=== PATIENT | male | born 2000 | race Hispanic/Latino ===

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

== ENCOUNTER 2022-07-14 15:31 | Emergency (ER) | payer BC ==
[~2022-07-14] VITALS: Ht 165.1 cm; Wt 53.5 kg
[2022-07-14 15:36] VITALS: BP 137/114
[2022-07-14 18:13] LABS: BASOPHILS % (AUTO) 0.3 % (0.0-5.0); EOSINOPHILS % (AUTO) 0.3 % (0.0-8.0); HEMATOCRIT 45.6 % (42-54); LYMPHOCYTES % (AUTO) 18.7 % (21.0-51.0); MEAN CORPUSCULAR HEMOGLOBIN 30.7 pg (27.0-33.0); MEAN CORPUSCULAR HGB CONC 34.6 g/dL (32.0-36.0); MEAN CORPUSCULAR VOLUME 88.7 fL (80-100); MONOCYTES % (AUTO) 6.8 % (3.0-13.0); NEUTROPHILS % (AUTO) 73.6 % (40.0-77.0); PLATELET COUNT (AUTO) 295 K/uL (130-400); RED BLOOD CELL COUNT(AUTO) 5.14 MIL/uL (4.50-6.20); RED CELL DISTRIBUTION WIDTH 11.6 % (11.0-15.5); WHITE BLOOD COUNT (AUTO) 11.6 K/uL (4.8-10.8)
[2022-07-14 18:23] LABS: CREATININE 0.9 mg/dL (0.5-1.5); POTASSIUM 3.9 mmol/L (3.5-5.1)
[2022-07-14 18:27] LABS: ALBUMIN 4.7 g/dL (3.5-5.0); TOTAL PROTEIN, SERUM 10.3 g/dL (6.0-8.3)
[2022-07-14] MEDS ORDERED: IOHEXOL-350 50ML VIAL IV ONE (18:33)
[2022-07-14] MEDS ORDERED: KETOROLAC 30MG VIAL (30MG/ML) IM ONE (20:30)
== END 2022-07-14 20:39 | disposition home or self-care (01) ==
LOC: EDH 15:31
DX: J36 Peritonsillar abscess (principal); Z20.822 Contact with and (suspected) exposure to COVID-19; H61.22 Impacted cerumen, left ear
CPT/HCPCS: 99284; 70491; 87635; 80053; 85025; 87880; 87804 ×2; 36415; C9803; Q9967; J1885

== ENCOUNTER 2024-05-27 02:41 | Emergency (ER) | payer BC ==
[~2024-05-27] VITALS: Ht 165.1 cm; Wt 68.5 kg
--- NOTE | 2024-05-27 02:48 | ERN ---
General Chief Complaint: Tooth Ache/Pain Stated Complaint: C/O TOOTHACHE TO LEFT TOP SIDE Time Seen by MD: 02:43 Source: patient History of Present Illness Initial Comments Patient is a 23-year-old male coming in to be evaluated for upper molar pain. Patient states he was diagnosed with a fractured molar in his pending a cap but states he has not followed up with a dentist as indicated. Allergies: Coded Allergies: No Known Allergies (Unverified Allergy, Unknown, 07/14/22) Past Medical History Past Medical History: No Pertinent History Past Surgical History: None ROS Dictation CONSTITUTIONAL: No chills, no fever, no weakness, no diaphoresis, no malaise. HEAD/FACE: No signs of trauma. EENT: No eye pain, no blurred vision, no tearing, no double vision, no ear pain, no ear discharge, no nose pain, no nasal congestion, no throat pain, no throat swelling, mouth pain. RESPIRATORY: No cough, no orthopnea, no SOB, no stridor, no wheezing. CARDIOVASCULAR: No chest pain, no edema, no palpitations, no syncope. GASTROINTESTINAL/ABDOMINAL: No abdominal pain, no constipation, no diarrhea, no nausea, no vomiting. GENITOURINARY: No abnormal discharge, no dysuria, no frequent urination, no hematuria. No complaints of pain in the genitals. MUSCULOSKELETAL: No back pain, no gout, no joint pain, no joint swelling, no muscle pain, no muscle stiffness, no neck pain. INTEGUMENTARY: No change in color, no change in hair/nails, no dryness, no lesion, no lumps, no rash. NEUROLOGICAL/PSYCH: No anxiety, not depressed, no emotional problem, no headache, no numbness, no pre-existing deficit, no history of seizures, no tremors, no weakness. HEMATOLOGIC/LYMPHATIC: Not anemic, no history of blood clots, no apparent bleeding, no bruising, glands not swollen. All Systems Negative, Except as Noted. Physical Exam Physical Exam Dictation VITAL SIGNS: Reviewed. GENERAL APPEARANCE: Alert, oriented x3, no acute distress, obese. HEAD AND FACE: Non-traumatic. EYES: PERRL, pink conjunctivas, eyelid no trauma, anterior chamber clear. EARS: Pinnas intact and no signs of trauma or erythema. Ear canals clear and no discharge. TMs no erythema. NOSE: No discharge, no bleeding. OROPHARYNX: Mouth normal, teeth no caries, tongue pink. Pharynx clear, no erythema. Tonsils no exudates, no abscesses noted. Mucous membrane moist. NECK: Supple, non-tender, no thyromegaly, no masses, no JVD, no bruits. BREAST: Deferred. CHEST: No tenderness, no crepitus, no paradoxical movement, no retractions. LUNGS: Clear, well-ventilated, symmetric, no rales, no wheezing, no rhonchi, no stridor, good breath sounds bilaterally. HEART: Regular rate, regular rhythm, no murmur, no gallops. VASCULAR: No peripheral edema. ABDOMEN: Soft, positive bowel sounds, nondistended, no guarding, nontender, no rebound, no masses no hepatomegaly, no splenomegaly, no Dove's sign, no hernias. RECTAL: Deferred. GENITAL: Deferred. NEUROLOGICAL: Normal speech, gross motor function intact, gross sensory function intact. MUSCULOSKELETAL: Neck nontender, full range of motion, back nontender, full range of motion. EXTREMITIES: Nontender, full range of motion. SKIN: Color pink, dry, no turgor, no rash, no lacerations, no abrasions, no contusions. LYMPHATICS: Deferred. MDM MDM: Differential diagnosis: Fractured molar, periodontal disease, Patient is a 23-year-old male coming in to be evaluated for molar pain. On physical exam the molar is fractured and patient was pending a cap to be placed in it. Patient was treated with pain relief with topical lidocaine, patient will be discharged with oral antibiotics for infection prevention and I advised him appropriate follow up with dentist for long-term management. ED Course Orders Procedure Category Date Status Time Lidocaine Hcl 2% PHA 05/27/24 Complete Viscous (Lidocaine Hcl 03:00 Current Medications Medications (Trade) Dose Ordered Sig/Mihir Route PRN Reason Start Time Stop Time Status Last Admin Dose Admin Lidocaine HCl (Lidocaine HCl 2% Viscous) 10 ml ONCE ONCE PO 05/27/24 03:00 05/27/24 03:01 DC 05/27/24 03:28 Vital Signs Date Time Temp Pulse Resp B/P (MAP) Pulse Ox O2 Delivery O2 Flow Rate FiO2 05/27/24 03:29 98.4 82 18 134/75 98 Room Air* 0 21 11/28/24 02:43 97.2 67 20 122/83 98 Room Air DX & DISP Disposition: Discharge Departure Impression: Primary Impression: Tooth fracture Condition: Stable Additional Instructions: FOLLOW-UP WITH PRIMARY CARE PROVIDER IN 1 TO 2 DAYS. TAKE MEDICATIONS DIRECTED HERE IN THE EMERGENCY ROOM. OKAY TO CONTINUE HOME MEDICATIONS UNLESS OTHERWISE DISCUSSED DURING YOUR VISIT IN THE EMERGENCY ROOM TODAY. RETURN TO YOUR NEAREST EMERGENCY ROOM IF SYMPTOMS WORSEN OR IF THERE IS NO IMPROVEMENT. CALL 911 IF YOU NEED IMMEDIATE ASSISTANCE. TAKE TYLENOL [id number] NEEDED AND IF NO CONTRAINDICATIONS ARE PRESENT. INCREASE ORAL HYDRATION. A WOUND CULTURE OR URINE CULTURE WAS ORDERED HERE IN THE EMERGENCY ROOM DEPARTMENT PLEASE FOLLOW-UP WITH PRIMARY CARE PROVIDER AND ADVISE THEM TO GET REPEAT PORTS FROM OUR FACILITY. IF YOU HAD ANY MELISSA WRAP/SPLINTS THAT WERE APPLIED HERE, PLEASE DO NOT REMOVE THEM UNTIL YOU SEE YOUR PRIMARY CARE OR SPECIALTY. Referrals: Referrals: NONE (PCP) HIGINIO FLOWERS MD Time of Disposition: 03:46 JUD TOUSSAINT MD May 27, 2024 02:47
[2024-05-27] MEDS: LIDOCAINE HCL 2% VISCOUS 15 ML UDCUP PO ONE (03:28)
[2024-05-27 03:29] VITALS: BP 134/75; PULSE 82; RESP 18; TEMP 98.4; O2SAT 98
== END 2024-05-27 03:36 | disposition home or self-care (01) ==
LOC: EDBD → EDH 02:41
DX: S02.5XXA Fracture of tooth (traumatic), initial encounter for closed fracture (principal); X58.XXXA Exposure to other specified factors, initial encounter; Y93.89 Activity, other specified; Y92.89 Other specified places as the place of occurrence of the external cause; Y99.8 Other external cause status
CPT/HCPCS: 99283

== ENCOUNTER 2024-05-27 18:57 | Emergency (ER) | payer BC ==
[~2024-05-27] VITALS: Ht 165.1 cm; Wt 68.5 kg
--- NOTE | 2024-05-27 19:12 | ERN ---
ED Note History of Present Illness Stated Complaint: SORE THROAT, LEFT UPPER TOOTHACHE Chief Complaint: Multiple Complaints Time Seen by MD: 19:00 Dictation: PATIENT IS HERE WITH COMPLAINTS OF HAVING DENTAL PAIN WITH MILD GINGIVAL SWELLING TO TOOTH 17. AND 18. ONSET FOR SEVERAL DAYS PRIOR TO ARRIVAL. NO FEVER NO CHILLS NO NAUSEA VOMITING. STATES HE SAW A DENTIST AT [facility] YESTERDAY AND WAS PRESCRIBED AUGMENTIN AND MOTRIN HOWEVER HE STATES IT IS NOT WORKING AND WOULD LIKE SOMETHING STRONGER. I ADVISED HIM I COULD NOT GIVE HIM ANYTHING STRONGER BUT I WOULD GIVE HIM A SHOT OF ROCEPHIN AND MOTRIN AND HAVE HIM FOLLOW BACK UP WITH THE [facility] TOMORROW. Allergies: Coded Allergies: No Known Allergies (Unverified Allergy, Unknown, 07/14/22) Past Medical History Past Medical History: No Pertinent History Surgical History: None RN Note Reviewed/Agreed w/PFSH: Yes Review of System Dictation CONSTITUTIONAL: NEGATIVE EXCEPT FOR HPI HEAD/FACE: NEGATIVE EXCEPT FOR HPI EENT: NEGATIVE EXCEPT FOR HPI DENTAL PAIN WITH GINGIVAL ERYTHEMA RESPIRATORY: NEGATIVE EXCEPT FOR HPI GASTROINTESTINAL/ABDOMINAL: NEGATIVE EXCEPT FOR HPI GENITOURINARY: NEGATIVE EXCEPT FOR HPI MUSCULOSKELETAL: NEGATIVE EXCEPT FOR HPI INTEGUMENTARY: NEGATIVE EXCEPT FOR HPI NEUROLOGICAL/PSYCH: NEGATIVE EXCEPT FOR HPI HEMATOLOGIC/LYMPHATIC: NEGATIVE EXCEPT FOR HPI ALL SYSTEMS NEGATIVE, EXCEPT NOTED ABOVE. 13 POINT REVIEW OF SYSTEMS ASSESSED AND ALL NEGATIVE EXCEPT FOR ABOVE. Initial Vital Sign VS Vital Signs Date Time Temp Pulse Resp B/P (MAP) Pulse Ox O2 Delivery O2 Flow Rate FiO2 05/27/24 19:00 98.4 81 16 142/86 100 Room Air 05/27/24 19:32 0 21 Physical Exam Dictation VITAL SIGNS REVIEWED GENERAL APPEARANCE: ALERT, ORIENTED X 3, MODERATE ACUTE DISTRESS, WELL DEVELOPED, NOURISHED. HEAD AND FACE: NON-TRAUMATIC. EYES: PERRL, PINK CONJUNCTIVAS, EYELID NO TRAUMA, ANTERIOR CHAMBER WITH ARCUS SENILIS. EARS: PINNAS INTACT AND NO SIGNS OF TRAUMA OR ERYTHEMA EAR CANALS CLEAR AND NO DISCHARGE TM NO ERYTHEMA NOSE: NO DISCHARGE, NO BLEEDING. OROPHARYNX: MOUTH NORMAL, TONGUE PINK, DECAY NOTED TOOTH 17. AND TOOTH 18. MILD GINGIVAL ERYTHEMA TENDERNESS PHARYNX CLEAR,NO ERYTHEMA, TONSILS NO EXUDATES, NO ABSCESSES NOTED, MUCOUS MEMBRANE MOIST NECK: SUPPLE, NON-TENDER, NO THYROMEGALY, NO MASSES, NO JVD, NO BRUITS BREAST:DEFERRED CHEST:NO TENDERNESS, NO CREPITUS, NO PARADOXICAL MOVEMENT, NO RETRACTIONS LUNGS:CLEAR, WELL-VENTILATED, SYMMETRIC, NO RALES, NO WHEEZING, NO RHONCHI, NO STRIDOR, GOOD BREATH SOUNDS BILATERALLY HEART: REGULAR RATE, REGULAR RHYTHM, NO MURMUR, NO GALLOPS VASCULAR: NO PERIPHERAL EDEMA, ABDOMEN: SOFT, POSITIVE BOWEL SOUNDS, NONDISTENDED, NO GUARDING, NONTENDER, NO REBOUND, NO MASSES NO HEPATOMEGALY, NO SPLENOMEGALY, NO THOMAS'S SIGN, NO HERNIAS. RECTAL: DEFERRED GENITAL: DEFERRED NEUROLOGICAL: NORMAL SPEECH, MOTOR FUNCTION INTACT, SENSORY FUNCTION INTACT MUSCULOSKELETAL: NECK NONTENDER, FULL RANGE OF MOTION, BACK NONTENDER, FULL RANGE OF MOTION, EXTREMITIES: NONTENDER, FULL RANGE OF MOTION SKIN: COLOR PINK, DRY, NO TURGOR, NO RASH, NO LACERATIONS, NO ABRASIONS, NO CONTUSIONS. LYMPHATIC: DEFERRED Results (Laboratory/Radiology) Labs Reviewed?: Yes ED Course ED Course 1909, PATIENT IS HEMODYNAMICALLY STABLE AND AFEBRILE. WE WILL GIVE PATIENT ROCEPHIN AND A MOTRIN. HE WILL BE DISCHARGED WITH THE INSTRUCTIONS TO CONTINUOUS MEDICATIONS FROM HIS DENTIST AND FOLLOW BACK UP WITH HIM TOMORROW WITHOUT FAIL Medical Decision Making MDM MEDICAL DISCHARGE MAKING BASED ON EMPIRIC TREATMENT FOR DENTAL CARIES INTO THE PULP AND DENTALGIA PATIENT GIVEN ROCEPHIN AND IBUPROFEN 800 PATIENT TOLD TO CONTINUE HIS MEDICATIONS FROM HIS DENTIST VISIT ON 05/26/2024. FOLLOW BACK UP WITH HIS DENTIST TOMORROW OR LOOKING THE [facility] FOR A DENTIST WITH AFTER HOURS EMERGENCY NUMBER. DX & DISP Disposition: Discharge Departure Impression: Primary Impression: Dental caries extending into pulp Additional Impression: Dentalgia Condition: Stable Additional Instructions: FOLLOW-UP WITH PRIMARY CARE PROVIDER IN 1 TO 2 DAYS. TAKE MEDICATIONS DIRECTED HERE IN THE EMERGENCY ROOM. OKAY TO CONTINUE HOME MEDICATIONS UNLESS OTHERWISE DISCUSSED DURING YOUR VISIT IN THE EMERGENCY ROOM TODAY. RETURN TO YOUR NEAREST EMERGENCY ROOM IF SYMPTOMS WORSEN OR IF THERE IS NO IMPROVEMENT. CALL 911 IF YOU NEED IMMEDIATE ASSISTANCE. TAKE TYLENOL OR MOTRIN [id number] NEEDED AND IF NO CONTRAINDICATIONS ARE PRESENT. INCREASE ORAL HYDRATION. A WOUND CULTURE OR URINE CULTURE WAS ORDERED HERE IN THE EMERGENCY ROOM DEPARTMENT PLEASE FOLLOW-UP WITH PRIMARY CARE PROVIDER AND ADVISE THEM TO GET REPEAT PORTS FROM OUR FACILITY. IF YOU HAD ANY MELISSA WRAP/SPLINTS THAT WERE APPLIED HERE, PLEASE DO NOT REMOVE THEM UNTIL YOU SEE YOUR PRIMARY CARE OR SPECIALTY. CONTINUE YOUR IBUPROFEN AND ANTIBIOTIC FROM YOUR DENTIST VISIT ON 05/26/2024. SUGGEST A DENTAL SOFT DIET. FOLLOW BACK UP WITH YOUR DENTIST TOMORROW OR LOOKING THE [facility] FOR A DENTIST WITH A AN AFTER HOURS EMERGENCY NUMBER Referrals: SELF,REFERRAL (PCP) Time of Disposition: 19:11 I have reviewed the case, and I agree with, Diagnosis and Plan I performed a substantive portion of the visit. I have reviewed and personally made and approve the management plan that is documented in the notes by myself with ROSEMARY/resident. I acknowledged full responsibility for the patient's management plan. ISHAAN ORDONEZ NP May 27, 2024 19:12 GM KEMP DO Jun 10, 2024 06:58
[2024-05-27] MEDS: ibuPROFEN 800 MG TAB PO ONE (19:27)
[2024-05-27] MEDS: cefTRIAXone 1G VIAL IM ONE (19:27)
[2024-05-27 19:32] VITALS: BP 128/87; PULSE 81; RESP 18; TEMP 98.3; O2SAT 98
== END 2024-05-27 19:38 | disposition home or self-care (01) ==
LOC: EDH 18:57
DX: K02.9 Dental caries, unspecified (principal)
CPT/HCPCS: 99284; 99283; 96372; J0696